=== PATIENT | male | born 1960 | race Caucasian/White ===

== ENCOUNTER 2018-08-31 13:20 | Inpatient (IN) | payer BC ==
[~2018-08-31] VITALS: Ht 175.3 cm; Wt 84.7 kg
[2018-08-31] VITALS (13 sets, daily range): BP systolic 102–200; BP diastolic 72–110
[~2018-08-31 13:20] MED LIST: ASPI-611 PO; ATOR40TA PO; LISI40TA4 PO; METO25TA6 PO; TICA90TA PO
[2018-08-31] MEDS ORDERED: heparin 25,000 UNIT/250ml bag 250 ML IV SCH (13:23)
[2018-08-31] MEDS ORDERED: normal saline 1000ML IV soln IVB ONE (13:25)
[2018-08-31] MEDS ORDERED: aspirin 81mg tab.chew PO ONE (13:25)
[2018-08-31] MEDS ORDERED: LORazepam 2 mg/ml vial IV ONE (13:25)
[2018-08-31] MEDS ORDERED: morphine 4 MG/ML inj SYRINge IV PRN ×3 (13:25→20:35)
[2018-08-31] MEDS ORDERED: ondansetron/PF 4mg/2ml inj IV ONE (13:25)
[2018-08-31] MEDS ORDERED: heparin 10,000 units/1 ML INJ IV ONE (13:25)
[2018-08-31] MEDS ORDERED: nitroGLYCERIN-Tridil 50MG/D5W 250 ML IV ONE (13:33)
[2018-08-31] MEDS ORDERED: fentaNYL/PF 50MCG/1 ML 2ML syringe ONE (13:33)
[2018-08-31] MEDS ORDERED: iohexol 350 MG/1 ML 200ml bottle ONE (13:34)
[2018-08-31] MEDS ORDERED: midazolam 2 mg/2 ml injection ONE (13:34)
[2018-08-31] MEDS ORDERED: LIDOcaine 1% 30ml preserv. free vial ONE (13:34)
[2018-08-31] MEDS ORDERED: heparin 1,000unit/ml 10ml vial 10 ML ONE (13:34)
[2018-08-31] MEDS ORDERED: iohexol 350 MG/ML 50ML vial IV ONE (13:34)
[2018-08-31] MEDS ORDERED: morphine 4 MG/ML inj SYRINge IV ONE (13:40)
[2018-08-31] MEDS ORDERED: tirofiban 5mg in NS 100mL 100 ML IV ONE (14:07)
[2018-08-31] MEDS ORDERED: iohexol 350MG/ML 100ml bottle IV ONE (14:21)
[2018-08-31 14:38] LABS: ALANINE AMINOTRANSFERASE 28 U/L (12-78); ALBUMIN 4.2 G/DL (3.4-5.0); ALBUMIN/GLOBULIN RATIO 1.3 (1.1-1.5); ALKALINE PHOSPHATASE 90 IU/L (46-116); ANION GAP 13 (8-16); ASPARTATE AMINO TRANSFERASE 52 U/L (10-37); BILIRUBIN,TOTAL 0.6 MG/DL (0.1-1.0); BLOOD UREA NITROGEN 11 MG/DL (7-18); BUN/CREATININE RATIO 9.4 (5.4-32.0); CALCIUM 11.6 MG/DL (8.5-10.1); CHLORIDE 102 MMOL/L (99-107); CREATININE 1.17 MG/DL (0.60-1.10); GLUCOSE 122 MG/DL (70-104); POTASSIUM 4.2 MMOL/L (3.5-5.1); SODIUM 138 MMOL/L (135-145); TOTAL CARBON DIOXIDE 23.2 MMOL/L (24-32); TOTAL PROTEIN 7.4 G/DL (6.4-8.2); eGFR 64 ML/MIN
[2018-08-31 14:42] LABS: MAGNESIUM 1.6 MG/DL (1.5-2.4)
[2018-08-31] MEDS ORDERED: clopidogrel 300mg tablet ONE (14:45)
[2018-08-31 14:48] LABS: BASOPHILS # (AUTO) 0.2 X10'3 (0-0.2); BASOPHILS % (AUTO) 1.4 % (0-1); EOSINOPHILS # (AUTO) 0.4 X10'3 (0-0.9); EOSINOPHILS % (AUTO) 2.7 % (0-6); HEMATOCRIT 49.5 % (42.0-52.0); HEMOGLOBIN 16.4 g/dl (14.0-17.9); LYMPHOCYTES # (AUTO) 3.1 X10'3 (1.1-4.8); LYMPHOCYTES % (AUTO) 19.7 % (21-51); MEAN PLATELET VOLUME 10.9 FL (7.4-10.4); MONOCYTES # (AUTO) 0.9 X10'3 (0-0.9); MONOCYTES % (AUTO) 5.6 % (2-12); NEUTROPHILS # (AUTO) 11.1 X10'3 (1.8-7.7); NEUTROPHILS % (AUTO) 70.6 % (42-75); PLATELET COUNT 271 X10'3 (140-440); RED BLOOD COUNT 5.44 X10'6 (4.70-6.10); WHITE BLOOD COUNT 15.7 X10'3 (4.5-11.0)
[2018-08-31 14:52] LABS: PROTHROMBIN TIME 10.3 SECONDS (9.0-12.0)
[2018-08-31] MEDS ORDERED: nitroGLYCERIN-Tridil 50MG/D5W 250 ML IV PRN (15:35)
[2018-08-31] MEDS: metoprolol tartrate 25mg tablet PO SCH ×2 (15:43→21:00)
[2018-08-31] MEDS: lisinopril 10 MG tablet PO SCH (16:56)
[2018-08-31] MEDS ORDERED: heparin 10,000 units/1 ML INJ IV PRN (17:05)
[2018-08-31] MEDS ORDERED: normal saline 1000ml 1,000 ML IV ONE (17:20)
[2018-08-31] MEDS: tirofiban 5mg in NS 100mL 100 ML IV SCH (17:24)
[2018-08-31] MEDS ORDERED: CLOPIDOGREL BISULFATE 300MG TAB PO ONE (17:25)
[2018-08-31] MEDS ORDERED: acetaminophen 325mg tablet PO PRN (17:25)
[2018-08-31] MEDS ORDERED: magnesium hydroxide 30ml (MOM) UD suspension PO PRN (17:25)
[2018-08-31] MEDS ORDERED: HYDROcodone/acetaminophen 10/325mg tab PO PRN ×2 (17:25)
[2018-08-31] MEDS ORDERED: proCHLORperazine 10 MG/2 ml inj IV PRN (17:25)
[2018-08-31] MEDS ORDERED: OXAZEpam 15mg capsule PO PRN (17:25)
[2018-08-31] MEDS ORDERED: cyclobenzaprine 10mg tablet PO PRN (17:25)
[2018-08-31] MEDS ORDERED: ondansetron/PF 4mg/2ml inj IV PRN (18:00)
[2018-08-31] MEDS: docusate sod 100mg capsule PO SCH (20:00)
[2018-08-31] MEDS: morphine 10mg/ml inj. IV PRN ×4 (20:37→23:42)
[2018-08-31] MEDS: LORazepam 2 mg/ml vial IV PRN ×4 (20:50→23:42)
[2018-09-01] VITALS (18 sets, daily range): BP systolic 99–140; BP diastolic 59–92
[2018-09-01] MEDS: tirofiban 5mg in NS 100mL 100 ML IV SCH ×2 (00:26→09:03)
[2018-09-01] MEDS: LORazepam 2 mg/ml vial IV PRN ×4 (00:49→04:01)
[2018-09-01] MEDS: morphine 10mg/ml inj. IV PRN ×4 (00:49→04:01)
[2018-09-01 05:58] LABS: BASOPHILS # (AUTO) 0.1 X10'3 (0-0.2); BASOPHILS % (AUTO) 0.9 % (0-1); EOSINOPHILS # (AUTO) 0.3 X10'3 (0-0.9); EOSINOPHILS % (AUTO) 2.4 % (0-6); HEMATOCRIT 42.3 % (42.0-52.0); LYMPHOCYTES # (AUTO) 1.7 X10'3 (1.1-4.8); LYMPHOCYTES % (AUTO) 16.4 % (21-51); MEAN CORPUSCULAR HEMOGLOBIN 30.2 PG (27.0-31.0); MEAN CORPUSCULAR HGB CONC 33.1 % (33.0-36.5); MEAN CORPUSCULAR VOLUME 91.2 FL (78-98); MEAN PLATELET VOLUME 9.9 FL (7.4-10.4); MONOCYTES # (AUTO) 0.6 X10'3 (0-0.9); MONOCYTES % (AUTO) 5.4 % (2-12); NEUTROPHILS # (AUTO) 7.8 X10'3 (1.8-7.7); NEUTROPHILS % (AUTO) 74.9 % (42-75); PLATELET COUNT 223 X10'3 (140-440); RED BLOOD COUNT 4.64 X10'6 (4.70-6.10); RED CELL DISTRIBUTION WIDTH 13.1 % (11.5-14.5); WHITE BLOOD COUNT 10.5 X10'3 (4.5-11.0)
[2018-09-01 06:27] LABS: ALBUMIN 3.6 G/DL (3.4-5.0); ANION GAP 10 (8-16); BLOOD UREA NITROGEN 9 MG/DL (7-18); BUN/CREATININE RATIO 9.2 (5.4-32.0); CALCIUM 8.9 MG/DL (8.5-10.1); CHLORIDE 105 MMOL/L (99-107); CHOL/HDL RATIO 4.8 (0.00-4.99); CHOLESTEROL 186 MG/DL (0-200); CREATININE 0.98 MG/DL (0.60-1.10); GLUCOSE 96 MG/DL (70-104); HDL CHOLESTEROL 39 MG/DL (35-60); LDL CHOLESTEROL 128 MG/DL (50-100); POTASSIUM 4.2 MMOL/L (3.5-5.1); SODIUM 141 MMOL/L (135-145); TOTAL CARBON DIOXIDE 26.4 MMOL/L (24-32); TRIGLYCERIDES 105 MG/DL (20-135); eGFR 79 ML/MIN
[2018-09-01 06:55] LABS: TROPONIN I 8.32 NG/ML (0.0-0.05)
[2018-09-01] MEDS: docusate sod 100mg capsule PO SCH ×2 (07:30→19:28)
[2018-09-01] MEDS: atorvastatin 20mg tablet PO SCH (07:30)
[2018-09-01] MEDS: clopidogrel 75mg tablet PO SCH (07:30)
[2018-09-01] MEDS: lisinopril 10 MG tablet PO SCH (07:30)
[2018-09-01] MEDS: aspirin 325mg tablet PO SCH (07:34)
[2018-09-01] MEDS: metoprolol tartrate 25mg tablet PO SCH ×2 (07:35→19:29)
[2018-09-02 02:00] VITALS: BP 169/109
[2018-09-02] MEDS ORDERED: mag hydrox/Alum hydrox/simeth 30ml oral suspension PO ONE (02:05)
[2018-09-02] MEDS: nitroGLYCERIN 0.4mg SUBLingual tab SL PRN ×3 (03:04→03:20)
[2018-09-02 07:00] VITALS: BP 105/65
[2018-09-02] MEDS: clopidogrel 75mg tablet PO SCH (07:50)
[2018-09-02] MEDS: atorvastatin 20mg tablet PO SCH (07:50)
[2018-09-02] MEDS: aspirin 325mg tablet PO SCH (07:50)
[2018-09-02 07:51] VITALS: BP_SYST 105
[2018-09-02] MEDS: lisinopril 10 MG tablet PO SCH (07:51)
[2018-09-02] MEDS: metoprolol tartrate 25mg tablet PO SCH (07:51)
[2018-09-02] MEDS: docusate sod 100mg capsule PO SCH (07:51)
[2018-09-02] MEDS ORDERED: CLOP75TA35 PO (10:16)
== END 2018-09-02 11:07 | disposition home or self-care (01) | DRG 247 ==
LOC: ER 13:20 → CICU 2S 15:00 → PCU 3S 09-01 17:30 → UNDODISIN 09-01 23:08
PROVIDERS: ADMIT Internal Medicine Cardiovascular Disease; ATTEND Internal Medicine Cardiovascular Disease
PROC: 4A023N7 Measurement of Cardiac Sampling and Pressure, Left Heart, Percutaneous Approach (ICD-10-PCS; principal; 2018-08-31)
PROC: 027034Z Dilation of Coronary Artery, One Artery with Drug-eluting Intraluminal Device, Percutaneous Approach (ICD-10-PCS; 2018-08-31)
PROC: B2111ZZ Fluoroscopy of Multiple Coronary Arteries using Low Osmolar Contrast (ICD-10-PCS; 2018-08-31)
PROC: B2151ZZ Fluoroscopy of Left Heart using Low Osmolar Contrast (ICD-10-PCS; 2018-08-31)
DX: I21.19 ST elevation (STEMI) myocardial infarction involving other coronary artery of inferior wall (principal); E78.5 Hyperlipidemia, unspecified; F12.90 Cannabis use, unspecified, uncomplicated; F17.210 Nicotine dependence, cigarettes, uncomplicated; M54.9 Dorsalgia, unspecified; G89.29 Other chronic pain; Z60.2 Problems related to living alone; I10 Essential (primary) hypertension; I25.10 Atherosclerotic heart disease of native coronary artery without angina pectoris; I25.2 Old myocardial infarction; Z82.49 Family history of ischemic heart disease and other diseases of the circulatory system; Z82.5 Family history of asthma and other chronic lower respiratory diseases; Z86.73 Personal history of transient ischemic attack (TIA), and cerebral infarction without residual deficits; Z91.19 Patient's noncompliance with other medical treatment and regimen; Z79.899 Other long term (current) drug therapy; Z79.82 Long term (current) use of aspirin; Z81.1 Family history of alcohol abuse and dependence; Z71.6 Tobacco abuse counseling
CPT/HCPCS: 96365; 96375; 99285; C9606; 36415; 71045; 80048; 80053; 80061; 83735; 83880; 84484; 85025; 85347; 85610; 85730; 93005; 99152; 99153; A6257; C1725; C1769; C1874; G0378; J1644; J2060; J2250; J2270; J2405; J3010; J3246; J3490; J7030; Q9967

== ENCOUNTER 2018-09-13 22:49 | Emergency (ER) | payer BC ==
[~2018-09-13] VITALS: Ht 177.8 cm; Wt 81.0 kg
[~2018-09-13 22:49] MED LIST changes: +CLOP75TA35 PO; -TICA90TA PO
[2018-09-13] MEDS ORDERED: aspirin 81mg tab.chew PO ONE (22:55)
[2018-09-13 23:13] LABS: BASOPHILS # (AUTO) 0.1 X10'3 (0-0.2); BASOPHILS % (AUTO) 0.5 % (0-1); EOSINOPHILS # (AUTO) 0.4 X10'3 (0-0.9); HEMATOCRIT 45.8 % (42.0-52.0); HEMOGLOBIN 15.2 g/dl (14.0-17.9); LYMPHOCYTES # (AUTO) 2.6 X10'3 (1.1-4.8); LYMPHOCYTES % (AUTO) 20.2 % (21-51); MEAN CORPUSCULAR HEMOGLOBIN 29.7 PG (27.0-31.0); MEAN CORPUSCULAR HGB CONC 33.2 % (33.0-36.5); MEAN CORPUSCULAR VOLUME 89.4 FL (78-98); MEAN PLATELET VOLUME 9.2 FL (7.4-10.4); MONOCYTES # (AUTO) 0.6 X10'3 (0-0.9); MONOCYTES % (AUTO) 4.9 % (2-12); NEUTROPHILS # (AUTO) 9.2 X10'3 (1.8-7.7); NEUTROPHILS % (AUTO) 71.4 % (42-75); PLATELET COUNT 283 X10'3 (140-440); RED BLOOD COUNT 5.12 X10'6 (4.70-6.10); WHITE BLOOD COUNT 12.9 X10'3 (4.5-11.0)
[2018-09-13 23:28] LABS: ALANINE AMINOTRANSFERASE 22 U/L (12-78); ALBUMIN 4.1 G/DL (3.4-5.0); ALBUMIN/GLOBULIN RATIO 1.2 (1.1-1.5); ALKALINE PHOSPHATASE 111 IU/L (46-116); ANION GAP 10 (8-16); ASPARTATE AMINO TRANSFERASE 18 U/L (10-37); BILIRUBIN,TOTAL 0.3 MG/DL (0.1-1.0); BLOOD UREA NITROGEN 12 MG/DL (7-18); BUN/CREATININE RATIO 11.1 (5.4-32.0); CALCIUM 10.3 MG/DL (8.5-10.1); CHLORIDE 102 MMOL/L (99-107); CREATININE 1.08 MG/DL (0.60-1.10); GLUCOSE 128 MG/DL (70-104); POTASSIUM 3.9 MMOL/L (3.5-5.1); SODIUM 139 MMOL/L (135-145); TOTAL CARBON DIOXIDE 26.9 MMOL/L (24-32); TOTAL PROTEIN 7.4 G/DL (6.4-8.2); eGFR 71 ML/MIN
[2018-09-13 23:29] LABS: PARTIAL THROMBOPLASTIN TIME 28 SECONDS (22-32)
== END 2018-09-13 23:13 | disposition left against medical advice (07) ==
LOC: ER 22:49
DX: R07.89 Other chest pain (principal); I25.2 Old myocardial infarction; G89.29 Other chronic pain; Z86.73 Personal history of transient ischemic attack (TIA), and cerebral infarction without residual deficits; Z95.5 Presence of coronary angioplasty implant and graft; Z79.82 Long term (current) use of aspirin; Z79.899 Other long term (current) drug therapy
CPT/HCPCS: 36415; 80053; 84484; 85025; 85610; 85730; 93005; 99284

== ENCOUNTER 2018-09-16 16:49 | Emergency (ER) | payer BC ==
[~2018-09-16] VITALS: Ht 175.3 cm; Wt 265.0 kg
[2018-09-16 16:55] VITALS: BP 120/79
== END 2018-09-16 19:45 | disposition home or self-care (01) ==
LOC: ER 16:49
DX: R79.89 Other specified abnormal findings of blood chemistry (principal); I25.10 Atherosclerotic heart disease of native coronary artery without angina pectoris; I25.2 Old myocardial infarction; G89.29 Other chronic pain; Z86.73 Personal history of transient ischemic attack (TIA), and cerebral infarction without residual deficits; Z98.61 Coronary angioplasty status; Z79.82 Long term (current) use of aspirin; Z79.01 Long term (current) use of anticoagulants; Z79.899 Other long term (current) drug therapy
CPT/HCPCS: 36415; 84484; 93005; 99284